=== PATIENT | male | born 1940 | race Caucasian/White ===

== ENCOUNTER 2023-05-14 09:57 | Outpatient (AMB) | payer OTHER, SELFPAY ==
--- NOTE | 2023-05-14 09:58 | MHC.OFFVIS ---
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: Flue Gas Analyst Name: Keven - Son Accompanied by: Son Allergies No Known Drug Allergies Allergy (Verified 05/14/23 10:01) Unknown Medication List - Last Reconciled 05/14/23 by Donte Duff MD amlodipine 10 mg PO DAILY aspirin 81 mg PO DAILY fluoxetine 40 mg PO DAILY fluticasone propionate 50 mcg/actuation sprays intranasal metoprolol succinate ER 100 mg PO DAILY hfbokdia-xoh-DH-lycopen-lutein 0.4 mg-300 mcg- 250 mcg (Cerovite Senior) 0 tabs PO rosuvastatin 40 mg PO DAILY valsartan 160 mg PO DAILY vitamin B complex (B Complex-Vitamin B12 tablet) 1 tab PO DAILY HPI HPI Comments History of Present Illness Details Pleasant 82-year-old gentleman who is referred to us for family history of coronary disease, hyperlipidemia and hypertension. His brother of 87 years of age in his sleep and was thought to be a heart attack. I have reassured the patient that this does not count as strong family history given advanced age. The patient is not very active in his day-to-day life but does not have any symptoms with his daily activities that he enjoys. No chest discomfort shortness of breath. He has right bundle-branch block on his EKG. He has hypertension has been taking medications including amlodipine 10 mg, Toprol-XL 100 mg and valsartan 160 mg. Blood pressure control is good he did not have any recent lipid panel. [facility] Surgical History (Updated 05/14/23 @ 10:03 by MALENA Rios) History of back surgery History of eye surgery Family History (Updated 05/14/23 @ 10:04 by MALENA Rios) Father Throat cancer Mother Stroke Diabetes Brother Heart disease Brother Heart disease Brother Heart disease Brother Heart disease Sister Heart disease Social History (Updated 05/14/23 @ 10:05 by MALENA Rios) Alcohol intake: former Year quit: 1971 Patient Tobacco Use Status: Former Tobacco user Quit Date: 1971 Years Smoked: 10 +/- Review of Systems Const Denies chills, Denies daytime sleepiness, Denies fatigue, Denies fever(s), Denies frequent falls, Denies night sweats, Denies snoring, Denies weakness, Denies weight gain and Denies weight loss Eyes Denies loss of vision ENT Denies dizziness and Denies hearing loss Card Denies chest pain, Denies chest pain with activity, Denies syncope, Denies rapid heart rate, Denies edema, Denies claudication, Denies leg edema, Denies lightheadedness, Denies palpitations, Denies dyspnea, Denies dyspnea on exertion and Denies orthopnea Resp Denies cough, Denies excessive phlegm production, Denies dyspnea, Denies dyspnea on exertion, Denies snoring and Denies wheezing GI Denies abdominal pain, Denies hematochezia, Denies change in bowel habits, Denies change in stool character, Denies heartburn, Denies nausea and Denies vomiting Denies hematuria, Denies dysuria and Denies urinary frequency Musc Denies arthralgias, Denies muscle weakness, Denies numbness and Denies tingling Skin/Breast Denies nail changes and Denies rash Neuro Denies Abnormal speech present, Denies dizziness, Denies syncope, Denies frequent falls, Denies loss of vision, Denies memory loss, Denies numbness, Denies tingling and Denies weakness Psych Denies depression and Denies memory loss Endo Denies fatigue and Denies palpitations Aller/Immun Denies wheezing Physical Exam Vital Signs: Last Vital Signs Pulse 70 05/14/23 09:59 BP 130/72 05/14/23 09:59 BMI result Body Mass Index 25.1 GENERAL APPEARANCE: in no acute distress, pleasant. NECK: no carotid bruit, no jugular venous distention. SKIN: no suspicious lesions, warm and dry. HEART: no murmurs, regular rate and rhythm. LUNGS: clear to auscultation bilaterally. ABDOMEN: soft, nontender. EXTREMITIES: no edema. PERIPHERAL PULSES: equal. NEUROLOGIC: No gross deficits, AAO X 3 Neuro Speech: No Abnormal speech present Office Procedures EKG Details: Sinus rhythm 80 beats per minute, normal axis, right bundle-branch block, QTC 464 milliseconds. [id number], Complete Assessment & Plan Assessment & Plan (1) RBBB: Code(s): I45.10 - Unspecified right bundle-branch block (2) Essential hypertension: Code(s): I10 - Essential (primary) hypertension (3) Hyperlipidemia: Code(s): E78.5 - Hyperlipidemia, unspecified Plan [age] gentleman who is here for 1st office visit. He has no chest discomfort shortness of breath. I have advised him to increase his physical activity to see if he develops any symptoms. If he does develop symptoms then we will arrange an exercise stress test for him. He has right bundle-branch block. Will arrange echocardiogram to rule out any structural issues with the heart. He should have a fasting lipid panel. He is currently taking Crestor 40 mg daily. Follow-up with us in 3 months. Thank you for allowing me to participate in the care of your patient. Please feel free to contact me if you have any questions. Orders: Orders CA echo transthoracic complete Today I45.10 - Unspecified right bundle-branch block Lipid Panel Today E78.5 - Hyperlipidemia, unspecified Coding Level of Care Code New Pt Level 4 (10521) Diagnoses RBBB I45.10 Essential hypertension I10 Hyperlipidemia E78.5 CPT Codes EKG - CPT: 84887-[id number], Complete ([id number])
[2023-05-14 09:59] VITALS: BP 130/72; PULSE 70; BMI 25.1
== END 2023-05-14 10:27 | disposition home or self-care (01) ==
LOC: HO.HCSM 09:57
PROVIDERS: PCP Internal Medicine; Referring Provider Internal Medicine; Visit Provider Internal Medicine Cardiovascular Disease
DX: I45.10 Unspecified right bundle-branch block (principal); I10 Essential (primary) hypertension; E78.5 Hyperlipidemia, unspecified
CPT/HCPCS: 93010; 99204

== ENCOUNTER → 2023-05-14 09:57 | Outpatient (BNVA) | payer OTHER, SELFPAY | PROVIDERS: PCP Internal Medicine; Referring Provider Internal Medicine; Visit Provider Internal Medicine Cardiovascular Disease | DX: I45.10 Unspecified right bundle-branch block (principal); I10 Essential (primary) hypertension; E78.5 Hyperlipidemia, unspecified; Z79.899 Other long term (current) drug therapy | CPT/HCPCS: 93005; 99202 ==

== ENCOUNTER → 2023-06-12 15:06 | Outpatient (REF) | payer OTHER, SELFPAY | LOC: HO.CARD 15:06 | PROVIDERS: PCP Internal Medicine; Visit Provider Internal Medicine Cardiovascular Disease | DX: I45.10 Unspecified right bundle-branch block (principal) | CPT/HCPCS: 93306; 93356 ==

== ENCOUNTER → 2023-06-12 15:12 | Outpatient (BNV) | payer OTHER, SELFPAY | PROVIDERS: PCP Internal Medicine; Visit Provider Internal Medicine Cardiovascular Disease | DX: I35.1 Nonrheumatic aortic (valve) insufficiency (principal); I36.1 Nonrheumatic tricuspid (valve) insufficiency | CPT/HCPCS: 93306 ==

== ENCOUNTER 2024-03-17 10:13 | Outpatient (REF) | payer OTHER, SELFPAY ==
[2024-03-17 14:19] LABS: Anion Gap 14 (12-20); Blood Urea Nitrogen 20 mg/dL (9-16); Carbon Dioxide 25 mmol/L (22-29); Chloride 113 mmol/L (96-108); Cholesterol 203 mg/dL (<200); Estimated Glomerular Filt Rate > 60; Glucose Random 98 mg/dL (60-115); HDL Cholesterol 38 mg/dL (>40); LDL Cholesterol Calculated 135 mg/dL (<100); Potassium 3.9 mmol/L (3.3-5.1); Sodium 148 mmol/L (135-145); Triglycerides 150 mg/dL (<150)
[2024-03-17 14:25] LABS: Vitamin D 25-OH Total 42.8 ng/mL (>30)
[2024-03-17 15:38] LABS: Reflex LDLD? No
== END 2024-03-17 10:14 | disposition home or self-care (01) ==
LOC: HO.HHCL 10:13
PROVIDERS: Visit Provider Internal Medicine
DX: R73.01 Impaired fasting glucose (principal); I10 Essential (primary) hypertension
CPT/HCPCS: 36415; 80048; 80061; 82306

== ENCOUNTER 2024-04-16 14:31 | Outpatient (REF) | payer OTHER, SELFPAY ==
[2024-04-16 16:36] LABS: Anion Gap 12 (12-20); Blood Urea Nitrogen 22 mg/dL (9-16); Calcium 9.7 mg/dL (8.4-10.2); Carbon Dioxide 29 mmol/L (22-29); Chloride 101 mmol/L (96-108); Cholesterol 108 mg/dL (<200); Estimated Glomerular Filt Rate 54; Glucose Random 176 mg/dL (60-115); HDL Cholesterol 39 mg/dL (>40); LDL Cholesterol Calculated 41 mg/dL (<100); Potassium 3.5 mmol/L (3.3-5.1); Sodium 138 mmol/L (135-145); Triglycerides 140 mg/dL (<150)
== END 2024-04-16 14:32 | disposition home or self-care (01) ==
LOC: HO.HHCL 14:31
PROVIDERS: Internal Medicine Cardiovascular Disease; Visit Provider Internal Medicine
DX: E87.0 Hyperosmolality and hypernatremia (principal); E78.5 Hyperlipidemia, unspecified
CPT/HCPCS: 36415; 80048; 80061